=== PATIENT | male | born 1930 | race Caucasian/White ===

== ENCOUNTER → 2018-07-26 | Outpatient (CLI) | payer OTHER ==
[~2018-07-26] VITALS: Ht 177.8 cm; Wt 81.6 kg
[~2018-07-26] MED LIST: ASPIRIN EC81 M1 OR; ATENOLOL 25MG T25 M1 PO; CLONAZEPAM 1 MG1 M1 PO; COUMADIN 5 MG TA5 M1 PO; COUMADIN OR; FINASTERIDE5 MG OR; FISH OIL + VIT1 EACH PO; FLECAINIDE ACET50 M1 PO; FLONASE; LEXAPRO 10 MG T10 MG OR; LIPITOR 20 MG T20 M1 PO; PRADAXA75 MG PO; PRILOSEC 20 MG20 MG PO; PRILOSEC OTC20 MG PO; SIMVASTATIN40 MG OR; TOPAMAX 25 MG T25 M1 OR; XALATAN2.5 ML
[2018-07-26 08:04] VITALS: BP 118/60
--- NOTE | 2018-07-26 09:18 | TEE ---
[facility] [place] [address] TRANSESOPHAGEAL ECHOCARDIOGRAM Name: MELVA BRODY Room #: REG [facility]#: [id number] ������������� Admission: 07/26/18 ������������� Attend Phys: Tulio Vazquez, Discharge: ��� ������������� ��� Date of : [birth year] Date of Service: 07/26/18 0918 �� Report #: [id number] �������� ��������������������������������������������[id number] THIS REPORT FOR: //name// APPROVED REPORT Study performed: 07/26/2018 08:43:27 EXAM: Transesophageal Echocardiogram Patient Location: Out-Patient Status: routine BSA: 2.00 HR: 58 bpm BP: 100/49 mmHg Rhythm: Atrial Fibrillation Other Information Study Quality: Good Indications Atrial Fibrillation Echo Enhancing Agent Indication: Rule out Shunt Agent(s) / Amount(s) Used: Agitated Saline 7 cc Procedure After obtaining informed consent, patient underwent transesophageal echo in the [employer]. Type of Sedation : Conscious Sedation Sedation was administered by Latoya Hidalgo RN. Sedation was achieved intravenously with: Versed (3) Fentanyl (50) Transesophageal probe was inserted and advanced into esophagus without difficulty by Tulio Vazquez MD. The SHANTE was performed without complications. Throughout the procedure, the blood pressure, pulse oximetry, cardiac rhythm, and rate were monitored. The patient tolerated the procedure without adverse effects. Recovery from conscious sedation was uneventful and vital signs were stable. Left Ventricle The left ventricle is normal size. There is normal LV segmental wall motion. There is normal left ventricular wall thickness. Left ventricular systolic function is normal. LVEF is 55-60%. [facility] [address] [place] [address] TRANSESOPHAGEAL ECHOCARDIOGRAM Name: MELVA BRODY [facility]: REG [facility] [id number] ������������� Admission: 07/26/18 ������������� Attend Phys: Tulio Vazquez, Discharge: ��� ������������� ��� Date of : [birth year] Date of Service: 07/26/18 0918 �� Report #: [id number] �������� ��������������������������������������������[id number] Right Ventricle The right ventricle is normal size. The right ventricular systolic function is normal. Atria No thrombus is visualized in the left atrium or appendage. No shunting noted with contrast bubble injection. The right atrium size is normal. Aortic Valve Aortic valve is trileaflet, mildly calcified. Trace aortic regurgitation. There is no aortic valvular stenosis. Mitral Valve Mild mitral annular calcification. Mild bileaflet prolapse Mild mitral regurgitation. There is mild mitral valve prolapse. Tricuspid Valve The tricuspid valve is normal in structure. Mild tricuspid regurgitation. Pulmonic Valve The pulmonary valve is normal in structure. There is no pulmonic valvular regurgitation. Great Vessels The aortic root is normal in size. The ascending aorta is normal in size. Mild atherosclerosis of aorta IVC is normal in size and collapses >50% with inspiration. Pericardium There is no pericardial effusion. <Conclusion> Left ventricular systolic function is normal. There is normal LV segmental wall motion. LVEF is 55-60%. No thrombus in the left atrium or appendage. No shunting noted with contrast bubble injection. Aortic valve is trileaflet, mildly calcified. Trace aortic regurgitation, no stenosis. Mild mitral annular calcification. Mild bileaflet prolapse. Mild [facility] [address] [address] TRANSESOPHAGEAL ECHOCARDIOGRAM Name: MISHALUZ MARIAMELVA Raysa Room #: REG [facility]#: [id number] ������������� Admission: 07/26/18 ������������� Attend Phys: Tulio Vazquez, Discharge: ��� ������������� ��� Date of : [birth year] Date of Service: 07/26/18917 �� Report #: [id number] �������� ��������������������������������������������[id number] mitral regurgitation. There is no pericardial effusion. ��������������������������������������������� <ELECTRONICALLY SIGNED> ���������������������������������������� By: Tulio Vazquez MD, [facility] ��������������������������������������������� 07/26/18917 7 7 Tulio Vazquez MD, FAC /INF
== END | disposition home or self-care (01) ==
LOC: CATH 07:08
DX: I08.0 Rheumatic disorders of both mitral and aortic valves (principal); I48.91 Unspecified atrial fibrillation; I10 Essential (primary) hypertension; E78.5 Hyperlipidemia, unspecified; K21.9 Gastro-esophageal reflux disease without esophagitis; F32.9 Major depressive disorder, single episode, unspecified; Z87.19 Personal history of other diseases of the digestive system; Z98.890 Other specified postprocedural states; Z98.41 Cataract extraction status, right eye; Z79.899 Other long term (current) drug therapy; Z79.01 Long term (current) use of anticoagulants

== ENCOUNTER → 2018-07-27 | Outpatient (CLI) | payer OTHER ==
[2018-07-27 08:22] LABS: HEMATOCRIT 39.4 % (42.0-52.0); HEMOGLOBIN 14.1 gm/dL (14.0-18.0); MCH 32.6 pg (26.0-34.0); MCHC 35.7 g/dL (28.0-37.0); MCV 91.5 fL (80.0-100.0); RBC 4.31 mil/uL (4.50-6.00); RDW 12.8 % (10.5-14.5); WBC 10.1 thou/uL (4.0-11.0)
[2018-07-27 08:42] LABS: ALBUMIN 3.7 g/dL (3.4-5.0); CALCIUM 8.4 mg/dL (8.5-10.1); POTASSIUM 4.3 mmol/L (3.5-5.1); TOTAL BILIRUBIN 0.8 mg/dL (<0.1-1.0)
== END ==
LOC: CAT 07:52
PROVIDERS: Internal Medicine Cardiovascular Disease
DX: I48.91 Unspecified atrial fibrillation (principal); I25.10 Atherosclerotic heart disease of native coronary artery without angina pectoris; I70.0 Atherosclerosis of aorta; J98.4 Other disorders of lung; N28.1 Cyst of kidney, acquired; Z79.01 Long term (current) use of anticoagulants; Z79.899 Other long term (current) drug therapy

== ENCOUNTER 2018-08-02 06:33 | Observation (INO) | payer OTHER ==
[~2018-08-02] VITALS: Ht 177.8 cm; Wt 81.6 kg
--- NOTE | ~2018-08-02 | P ---
[facility] [place] [address] PROCEDURE REPORT Name: MELVA BRODY Room #: 212-P [facility]#: [id number] Admission: 08/02/18 ������������������ Attend Phys: Hans Hernandez MD Discharge: ������������������ Date of : [birth year] Report #: [id number] THIS REPORT FOR: //name// CC: Ottoniel Hernandez DATE OF SERVICE: 08/02/2018 PREOPERATIVE DIAGNOSIS: Paroxysmal atrial fibrillation. POSTOPERATIVE DIAGNOSIS: Paroxysmal atrial fibrillation. PROCEDURES PERFORMED: 1. Atrial fibrillation ablation, CPT code 40628. 2. 3D mapping EP, CPT code 70335. 3. Intracardiac echo, CPT code 72531. ANESTHESIA: The patient underwent general anesthesia with no anesthesia related complications. DESCRIPTION OF PROCEDURE: The patient underwent informed consent. We discussed the details of the procedure including the risks, which include but not limited to bleeding, vascular damage, cardiac perforation, stroke, RI. He understood these risks and is willing to proceed. The patient was brought to EP laboratory in a fasting and sedated state, prepped and draped in a sterile fashion. I obtained access to the right femoral vein x 3, placing an 8, 9 and 7-Japanese short sheath using the modified Seldinger technique. Under fluoroscopy, I placed a decapolar catheter easily in the coronary sinus and an ice catheter into the right atrium. Using CartoSound, I created a detailed 3D geometry of the left atrium and merged this with my cardiac CT scan. The patient had evidence of two left and two right pulmonary veins. The left superior pulmonary vein had a very superior takeoff. Next, the patient was systemically heparinized and a transseptal was performed using an SL1 sheath and a Golden needle. I was able to cross with my guidewire into the left atrium, but I could not advance my sheath dilator into the left atrium. Therefore, I removed the dilator for my SL1 sheath and placed a Powerflex Pro 6 mm x 4 cm balloon and I predilated the interatrial septum and then, I was able to cross with my SL1 sheath into the left atrium. Next, using a Lasso catheter, I created a detailed 3D voltage map of the left atrium. This was merged with the CT scan. Next, I exchanged my SL1 sheath for the cryosheath and cryoballoon and I started by isolating the left-sided veins. The left superior pulmonary vein had a very superior takeoff. I performed a 3-minute followed by a 4-minute freeze. These attempts were very, very good. I performed a third freeze where I clock the balloon and got a better seal and attempts were much better and the vein isolated within 60 seconds during this third freeze. I then turned my [facility] [address] [place] [address] PROCEDURE REPORT Name: MELVA BRODY Room #: 212-P [facility] M.R.#: [id number] Admission: 08/02/18 ������������������ Attend Phys: Hans Hernandez MD Discharge: ������������������ Date of : [birth year] Report #: [id number] attention to the left inferior pulmonary vein and I performed a single 4-minute freeze as the vein isolated within 30 seconds. I then went to the right-sided pulmonary veins and I performed phrenic nerve pacing from the decapolar catheter placed up in the subclavian vessel. I performed two 3-minute freezes followed by a 4-minute freeze. The vein isolated early during the third freeze. I then turned my attention to the right inferior pulmonary vein. I performed a 180-second freeze followed by a 150-second freeze. It appeared that the vein had isolated during the first freeze. Therefore, I removed the cryoballoon and performed a voltage map and this showed evidence that all veins were isolated except the right inferior pulmonary vein. Therefore, I went back into the right inferior pulmonary vein with the cryoablation balloon and this time, I entered into the inferior branch as it appeared that I had a likely frozen superior branch the first time. At this time, attempts were much improved and I came off after 160 seconds as there were beginnings of some phrenic nerve weakening. The vein had appeared to already have isolated. We monitored the phrenic for several minutes and it returned to 100% strength. Therefore, a repeat voltage map was created and now, all four pulmonary veins were isolated. The voltage map was consistent with wide circumferential ablation of the pulmonary veins. As such, the procedure was concluded. I pulled my catheters to the right side. Using intracardiac ultrasound, I verified there was no pericardial effusion. I then gave the patient systemic protamine and once ACT was within acceptable range, catheters and sheaths were pulled and hemostasis was obtained. The patient awoke neurologically and hemodynamically intact. No complications and no significant bleeding. CONCLUSIONS: Successful AFib ablation with isolation of the four pulmonary veins. ��������������������������������������������� ���������������������������������������� By: ��������������������������������������������� 1456 0402 Hans Hernandez MD /nt
[2018-08-02 07:01] VITALS: BP 117/61
[2018-08-02 07:01] LABS: ABSOLUTE NEUTROPHILS 4.8 thou/uL (1.4-8.2); BASOPHILS 0.7 % (0.0-2.0); EOSINOPHILS 5.2 % (0.0-3.0); HEMATOCRIT 39.4 % (42.0-52.0); LYMPHOCYTES 30.5 % (24.0-44.0); MCH 32.4 pg (26.0-34.0); MCHC 35.4 g/dL (28.0-37.0); MCV 91.5 fL (80.0-100.0); MONOCYTES 11.1 % (1.0-8.0); PLATELET COUNT 373 thou/uL (150-400); POLYS 52.5 % (36.0-66.0); RBC 4.31 mil/uL (4.50-6.00); RDW 13.1 % (10.5-14.5); WBC 9.2 thou/uL (4.0-11.0)
[2018-08-02 07:09] LABS: CALCIUM 9.2 mg/dL (8.5-10.1); CREATININE 1.2 mg/dL (0.7-1.3); POTASSIUM 3.6 mmol/L (3.5-5.1)
[2018-08-02 07:15] LABS: ALBUMIN 3.8 g/dL (3.4-5.0); TOTAL BILIRUBIN 0.8 mg/dL (<0.1-1.0); TOTAL PROTEIN 7.8 g/dL (6.4-8.2)
[2018-08-02 07:21] LABS: APTT 24.7 Seconds (24.5-32.8); PROTIME 10.8 Seconds (9.3-11.4)
[2018-08-02 12:49] VITALS: BP 103/63
[2018-08-02 13:45] VITALS: BP 99/52
[2018-08-02 14:45] VITALS: BP 104/66
--- NOTE | 2018-08-02 14:49 | NUR ---
PT ARRIVED TO THE UNIT AT APPROX 1245 BY PACU STAFF. PT ALERT AND ORIENTED, VSS, NO C/O PAIN. RIGHT GROIN DRESSING DRY AND INTACT WITH DRY BLOOD DRAINAGE. ADMISSION COMPLETED, PT IS REMINDED OF INSTRUCTED IMMOBILIZATION. FREQUENT GROIN SITE CHECKS. UPON Q15 GROIN SITE CHECKS, THIS NURSE NOTICED BLEEDING AND PRESSURE WAS APPLIED IMMEDIATELY. CHARGE NURSE INFORMED, ASSISTANCE WITH PRESSURE HOLDING INITIATED. AFTER 40 MINUTES OF APPLIED PRESSURE, BLEEDING WAS STOPPED, GROIN SITE WAS REDRESSED, PT INSTRUCTED ON EXTENSION OF INSTRUCTED IMMOBILIZATION. FREQUENT GROIN SITE CHECKS CONTINUED. VSS, PT DENIES CONCERNS. FAMILY AT BEDSIDE, INSTRUCTED TO CALL WITH NEEDS. TELE PUT ON, ADMIT STRIP PRINTED AND DOCUMENTED.
--- NOTE | 2018-08-02 18:02 | NUR ---
PT CONTINUES TO BE ALERT AND ORIENTED, VSS, NO C/O PAIN, DENIES CHEST PAIN, SOB. RIGHT GROIN SITE CDI, NO HEMATOMA. INSTRUCTED ON IMMOBILIZATION FOR 3 HOURS, COMMUNICATES UNDERSTANDING. FAMILY AT BEDSIDE THROUGHOUT SHIFT, PT DENIES CONCERNS AT THIS TIME. WILL CONTINUE TO MONITOR WITH FREQUENT GROIN CHECKS.
[2018-08-02 19:55] VITALS: BP 104/49
[2018-08-03 00:15] VITALS: BP 97/50
[2018-08-03 04:35] VITALS: BP 96/53
--- NOTE | 2018-08-03 04:39 | NUR ---
ASSUMED PT CARE AT 1900. PT A/OX4, VITAL SIGNS STABLE, ASSESSMENT CHARTED. PAIN ADEQAUTELY MANAGED WITH PAIN MEDICATION. NO COMPLAINTS OF CHEST PAIN. RIGHT GROIN SITE CLEAN DRY AND INTACT. [place] DISCONTINUED AT ABOUT 2029. PT AMBULATED IN ROOM AFTER BEDREST. NO COMPLAINTS OF DIZZINESS. PT RESTED WELL THROUGH THE NIGHT. PROGRESSING TOWARD PLAN OF CARE. WILL CONTINUE TO MONITOR.
[2018-08-03 08:00] VITALS: BP 113/56
[2018-08-03] MEDS ORDERED: PRADAXA150 MG PO (08:09)
[2018-08-03] MEDS ORDERED: PRILOSEC 20 MG20 MG PO (08:09)
[2018-08-03 09:46] VITALS: BP 113/56
--- NOTE | 2018-08-03 11:00 | NUR ---
PT ALERT AND ORIENTED. VSS. DENIED HAVING PAIN OR DISCOMFORT. RIGHT GROIN INCISION C/D/I. NO HEMATOMA NOTED. SEEN BY DR. MCDONALD. ORDERS GIVEN TO DISCHARGE PT TO HOME. DISCHARGE INSTRUCTIONS GIVEN TO PT. PT VERBERLIZE UNDERSTANDING.
== END 2018-08-03 10:51 | disposition home or self-care (01) ==
LOC: CATH 06:33 → 2N 12:43 → ENTRNSPT 08-03 10:42 → EDTRNSPTSTS 08-03 10:45 → 2N 08-03 10:51
PROVIDERS: ADMIT Internal Medicine Cardiovascular Disease
DX: I48.0 Paroxysmal atrial fibrillation (principal); I10 Essential (primary) hypertension; Z90.89 Acquired absence of other organs
CPT/HCPCS: 62110; 62900; 65020; 65040; 70005

== ENCOUNTER → 2018-11-18 | Outpatient (CLI) | payer OTHER ==
[~2018-11-18] MED LIST changes: +PRADAXA150 MG PO
--- NOTE | ~2018-11-18 | P ---
[facility] [place] [address] PROCEDURE REPORT Name: MARY GRACEMELVA Raysa Room #: REG [facility]#: [id number] Admission: 11/18/18 Attend Phys: Hans Hernandez MD Discharge: Date of : [birth year] Report #: [id number] THIS REPORT FOR: //name// CC: Ottoniel Hernandez PROCEDURE: Implantable loop recorder. PREOPERATIVE DIAGNOSIS: Atrial fibrillation. POSTOPERATIVE DIAGNOSIS: Atrial fibrillation. DESCRIPTION OF PROCEDURE: The patient underwent informed consent. He was prepped and draped in a sterile fashion. I injected lidocaine at the incision site. Incision was made. The device was injected under the skin. A single layer of suture was performed and surgical glue was placed outer skin layer. There were no procedure related complications. Implanted device was a [employer] model #3500, serial [id number]. CONCLUSIONS: Successful implantation of an implantable loop recorder. By: 1412 1456 Hans Hernandez MD /nt
[2018-11-18 11:45] VITALS: BP 140/59
== END | disposition home or self-care (01) ==
LOC: CATH 11:01
DX: I48.0 Paroxysmal atrial fibrillation (principal); Z98.890 Other specified postprocedural states; Z79.899 Other long term (current) drug therapy; Z79.01 Long term (current) use of anticoagulants

== ENCOUNTER → 2019-04-28 | Outpatient (CLI) | payer OTHER | LOC: SJCVC 12:43 | DX: I49.1 Atrial premature depolarization (principal); I48.0 Paroxysmal atrial fibrillation; I10 Essential (primary) hypertension; M06.9 Rheumatoid arthritis, unspecified; Z90.49 Acquired absence of other specified parts of digestive tract; Z79.899 Other long term (current) drug therapy ==

== ENCOUNTER → 2019-10-26 | Outpatient (CLI) | payer OTHER | LOC: SJCVC 13:53 | PROVIDERS: ATTEND Internal Medicine Cardiovascular Disease | DX: I48.0 Paroxysmal atrial fibrillation (principal); I49.1 Atrial premature depolarization; I10 Essential (primary) hypertension; E78.00 Pure hypercholesterolemia, unspecified; Z79.899 Other long term (current) drug therapy ==

== ENCOUNTER → 2020-05-01 | Outpatient (CLI) | payer OTHER | LOC: SJCVC 14:18 | PROVIDERS: ATTEND Internal Medicine Cardiovascular Disease | DX: I48.0 Paroxysmal atrial fibrillation (principal); I49.49 Other premature depolarization; I10 Essential (primary) hypertension; E78.00 Pure hypercholesterolemia, unspecified; M06.9 Rheumatoid arthritis, unspecified; Z98.890 Other specified postprocedural states; Z90.49 Acquired absence of other specified parts of digestive tract; Z79.899 Other long term (current) drug therapy ==

== ENCOUNTER → 2020-07-26 | Outpatient (CLI) | payer OTHER ==
[~2020-07-26] MED LIST changes: +ELIQUIS5 MG PO; +FLOMAX0.4 MG PO; +FOLIC ACID1 MG PO; +LOPRESSOR50 MG PO; +METHOTREXATE 22.5 M1 PO; +PREGABALIN50 MG PO
== END ==
LOC: SJCVC 15:07
PROVIDERS: ATTEND Internal Medicine Cardiovascular Disease
DX: R94.31 Abnormal electrocardiogram [ECG] [EKG] (principal); I48.0 Paroxysmal atrial fibrillation; I10 Essential (primary) hypertension; M06.9 Rheumatoid arthritis, unspecified; Z90.49 Acquired absence of other specified parts of digestive tract; Z98.890 Other specified postprocedural states; Z79.899 Other long term (current) drug therapy

== ENCOUNTER → 2020-07-31 | Outpatient (CLI) | payer OTHER ==
[~2020-07-31] VITALS: Ht 177.8 cm; Wt 82.1 kg
--- NOTE | ~2020-07-31 | P ---
[facility] [place] [address] PROCEDURE REPORT Name: MELVA BRODY [facility] #: [facility] [id number] Admission: 07/31/20 Attend Phys: Hans Hernandez MD Discharge: Date of : [birth year] Report #: [id number] THIS REPORT FOR: cc: Ottoniel Figueroa MD, John L. MD Couchonnal, Luis F. MD ~ DOC #: [id number] Hans Hernandez MD PREOPERATIVE DIAGNOSIS: Atrial fibrillation. POSTOPERATIVE DIAGNOSIS: Atrial fibrillation. PROCEDURES PERFORMED: 1. Explantation of a loop recorder. 2. Implantation of loop recorder. 3. DC cardioversion. DESCRIPTION OF PROCEDURE: The patient underwent informed consent for both the loop recorder replacement and cardioversion. He was then prepped and draped in a standard fashion. I injected lidocaine at the prior loop recorder incision site. Incision was made. Old device was removed. The new device was injected and the new device was sutured in place and surgical glue was placed to outer skin layer. The implanted device was a [employer]onic Linq implantable loop recorder. Next, anesthesia came into the room, the patient was prepped in a standard fashion with pads placed in AP position. The patient was sedated by the anesthesiology service. Once sedated, underwent a 200 joule synchronized cardioversion with mu-ism of sinus rhythm. There were no procedure related complications. CONCLUSION: 1. Successful replacement of an implantable loop recorder with a [employer]onic device. 2. Successful direct current cardioversion with mu-ism of sinus rhythm. Hans Hernandez MD [facility]/KDA [facility] [address] [address] PROCEDURE REPORT Name: MELVA BRODY Room #: [facility]#: [id number] Admission: 07/31/20 Attend Phys: Hans Hernandez MD Discharge: Date of : 10/[birth year] Report #: [id number] By: 1112 2202 Hans Hernandez MD /nt
[2020-07-31 07:43] VITALS: BP 117/62
[2020-07-31 07:54] LABS: HEMATOCRIT 32.6 % (42.0-52.0); HEMOGLOBIN 11.9 gm/dL (14.0-18.0); MCH 35.3 pg (26.0-34.0); MCHC 36.4 g/dL (28.0-37.0); MCV 96.9 fL (80.0-100.0); RBC 3.37 mil/uL (4.50-6.00); RDW 14.3 % (10.5-14.5); WBC 6.5 thou/uL (4.0-11.0)
[2020-07-31 08:03] LABS: CALCIUM 8.4 mg/dL (8.5-10.1); CREATININE 1.2 mg/dL (0.7-1.3); POTASSIUM 4.1 mmol/L (3.5-5.1)
[2020-07-31 08:07] LABS: INR 1.11
[2020-07-31 08:08] LABS: ALBUMIN 3.3 g/dL (3.4-5.0); TOTAL BILIRUBIN 0.6 mg/dL (0.2-1.0); TOTAL PROTEIN 6.9 g/dL (6.4-8.2)
[2020-07-31 08:15] VITALS: BP 105/56
--- NOTE | 2020-07-31 08:32 | EKG ---
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 07/31/20 0832 075 [id number] Tulio Vazquez MD, FACC /EPI
== END | disposition home or self-care (01) ==
LOC: CATH 06:30
PROVIDERS: ATTEND Internal Medicine Cardiovascular Disease
DX: I48.91 Unspecified atrial fibrillation (principal); R53.83 Other fatigue; I10 Essential (primary) hypertension; E78.5 Hyperlipidemia, unspecified; F32.9 Major depressive disorder, single episode, unspecified; K21.9 Gastro-esophageal reflux disease without esophagitis; Z98.890 Other specified postprocedural states; Z79.899 Other long term (current) drug therapy; Z87.891 Personal history of nicotine dependence; Z79.01 Long term (current) use of anticoagulants
CPT/HCPCS: 62110; 62900

== ENCOUNTER → 2020-08-30 | Outpatient (CLI) | payer OTHER | LOC: SJCVC 11:03 | PROVIDERS: ATTEND Internal Medicine Cardiovascular Disease | DX: I48.0 Paroxysmal atrial fibrillation (principal); I10 Essential (primary) hypertension; I48.19 Other persistent atrial fibrillation; M06.9 Rheumatoid arthritis, unspecified; Z90.49 Acquired absence of other specified parts of digestive tract; Z79.899 Other long term (current) drug therapy ==